=== PATIENT | female | born 1960 | race Caucasian/White ===

== ENCOUNTER → 2020-08-20 11:07 | Outpatient (CLI) | payer OTHER, SELFPAY ==
--- NOTE | ~2020-08-20 | US_ITS ---
EXAMINATION: US transvaginal DATE: 08/20/2020 11:37 INDICATION: Pelvic pain Comparison: No prior studies for comparison. TECHNIQUE: Multiple transabdominal sonographic images of the pelvis performed. FINDINGS: The uterus measures 6.5 x 3.9 x 4.2 cm. The endometrial complex measures 3 mm. The right ovary measures 1.7 x 1.9 x 1.2 cm and the left ovary measures 2 x 2 x 2 cm. There are small uterine fibroids, largest measuring 2.1 cm. There are nabothian cysts. There are small follicles in each ovary. Normal doppler signal in both ovaries. There is no free fluid in the pelvis. There are no abnormal masses seen on either side. IMPRESSION: 1. Uterine fibroids, largest measuring 2.1 cm. Reviewed, dictated and finalized at location B.
== END ==
PROVIDERS: Visit Provider Nurse Practitioner
DX: R10.2 Pelvic and perineal pain (principal); N94.11 Superficial (introital) dyspareunia; D25.9 Leiomyoma of uterus, unspecified
CPT/HCPCS: 76830

== ENCOUNTER → 2020-10-13 13:13 | Outpatient (CLI) | payer OTHER, SELFPAY ==
--- NOTE | ~2020-10-13 | MM_ITS ---
EXAMINATION: MM screening rico BI w michelle HISTORY: Screening mammogram TECHNIQUE: Craniocaudal and mediolateral oblique 3-D tomosynthesis images were obtained and synthetic 2-D images were generated. CAD analysis was submitted and interpreted. COMPARISON: 03/28/2018, 02/16/2017, 04/30/2015 bilateral digital screening mammogram examinations BREAST PARENCHYMAL COMPOSITION: The breasts are heterogeneously dense, which may obscure small masses . FINDINGS: Stable fibroglandular asymmetry. Multiple bilateral benign calcifications are again noted. There is no evidence of suspicious mass, calcification, or architectural distortion to suggest malign momo in either breast. There has been no suspicious interval change. IMPRESSION: 1. No mammographic evidence of malignancy. 2. Recommend routine screening mammography in one year. BI-RADS Category 2: Benign finding(s). Reviewed, dictated and finalized at location A.
--- NOTE | ~2020-10-13 | DEXA_ITS ---
Bone Density Report Name: Rima Carter Age: 60 Sex: Female Ethnicity: White Date of : 1960 Indication: postmenopausal; screening for osteoporosis; Referring Provider: MYESHA, ZAK Study: Bone densitometry was performed. Exam Date: October 13, 2020 Accession number: [id number] Bone Density: Region BMD T-score Z-score Classification AP Spine (L1-L4) 1.157 1.0 2.3 Normal Femoral Neck (Left) 0.793 -0.5 0.7 Normal Total Hip (Left) 1.028 0.7 1.6 Normal Femoral Neck (Right) 0.799 -0.4 0.8 Normal Total Hip (Right) 0.977 0.3 1.1 Normal Total Hip Mean 1.003 0.5 1.4 Normal World Health Organization criteria for BMD impression classify patients as: Normal (T-score at or above -1.0), Osteopenia (T-score between -1.0 and -2.5), or Osteoporosis (T-score at or below -2.5). 10-year Fracture Risk: FRAX not reported because: All T-scores for Spine Total, Hip Total, Femoral Neck at or above -1.0 Previous Exams: Region Exam Age BMD T-score BMD Change BMD Change Date g/cm2 vs Baseline vs Previous AP Spine(L1-L4) 10/13/2020 60 1.157 1.0 -0.078* -0.078* 01/23/2014 53 1.235 1.7 Total Hip(Left) 10/13/2020 60 1.028 0.7 -0.079* -0.079* 01/23/2014 53 1.107 1.3 Total Hip(Right) 10/13/2020 60 0.977 0.3 -0.101* -0.101* 01/23/2014 53 1.078 1.1 *Denotes significance at 95% confidence level, LSC for AP Spine = 0.022 g/cm2, LSC for Total Hip = 0.027 g/cm2 Clinical Information Provided by Patient: Patient maximum height was 65 Menopause Age: 52 No regular weight bearing exercise Does not regularly consume dairy products Drinks caffeinated beverages Onset of menses at age 17 Number of children 0 Impression: The patient has normal bone mass. The BMD for the AP Spine(L1-L4) decreased, changing by -0.078 since the last DXA exam. The BMD for the Total Hip(Left) decreased, changing by -0.079 since the last DXA exam. The BMD for the Total Hip(Right) decreased, changing by -0.101 since the last DXA exam. Discussion: BONE DENSITY IS ABOVE THE MINIMUM DESIRABLE LEVEL AT ALL SKELETAL SITES TESTED. This patient?s bone mineral density is above the minimum desirable level (T-score -1.0 or better) at all sites measured. The patient should follow a healthful lifestyle (good nutrition with adequate calcium and vitamin D, and appropriate weight-bearing exercise). Follow-Up: Consider repeating
== END ==
PROVIDERS: PCP Family Medicine; Visit Provider Nurse Practitioner
DX: Z12.31 Encounter for screening mammogram for malignant neoplasm of breast (principal); Z78.0 Asymptomatic menopausal state
CPT/HCPCS: 77063; 77067; 77080

== ENCOUNTER → 2021-10-17 13:36 | Outpatient (CLI) | payer OTHER, SELFPAY ==
--- NOTE | ~2021-10-17 | MM_ITS ---
EXAMINATION: MM screening rico BI w michelle HISTORY: Screening TECHNIQUE: Craniocaudal and mediolateral oblique 3-D tomosynthesis images were obtained and synthetic 2-D images were generated. CAD analysis was submitted and interpreted. COMPARISON: Comparison to multiple prior studies sequentially, with oldest reviewed study dated 06/2013. BREAST PARENCHYMAL COMPOSITION: The breasts are extremely dense, which lowers the sensitivity of mamm ography FINDINGS: There is no evidence of suspicious mass, calcification, or architectural distortion to sugg est malignancy in either breast. There has been no suspicious interval change. IMPRESSION: 1. No mammographic evidence of malignancy. 2. Recommend routine screening mammography in one year. BI-RADS Category 1: Negative Reviewed, dictated and finalized at location A.
== END ==
PROVIDERS: PCP Family Medicine; Visit Provider Nurse Practitioner
DX: Z12.31 Encounter for screening mammogram for malignant neoplasm of breast (principal)
CPT/HCPCS: 77063; 77067

== ENCOUNTER 2022-12-28 13:23 | Outpatient (CLI) | payer SELFPAY ==
--- NOTE | ~2022-12-28 | MM_ITS ---
EXAMINATION: MM screening rico BI w michelle HISTORY: Screening mammogram TECHNIQUE: Craniocaudal and mediolateral oblique 3-D tomosynthesis images were obtained and synthetic 2-D images were generated. CAD analysis was submitted and interpreted. COMPARISON: 10/17/2021, 10/13/2020, 03/28/2018 bilateral screening mammogram examinations BREAST PARENCHYMAL COMPOSITION: The breasts are heterogeneously dense, which may obscure small masses . FINDINGS: Stable fibroglandular asymmetry. Bilateral benign calcifications are again noted. There is no evidence of suspicious mass, calcification, or architectural distortion to suggest malignancy in e ither breast. There has been no suspicious interval change. IMPRESSION: 1. No mammographic evidence of malignancy. 2. Recommend routine screening mammography in one year. BI-RADS Category 2: Benign finding(s). Reviewed, dictated and finalized at location A.
== END 2022-12-28 13:24 ==
PROVIDERS: PCP Nurse Practitioner; Visit Provider Nurse Practitioner
DX: Z12.31 Encounter for screening mammogram for malignant neoplasm of breast (principal)
CPT/HCPCS: 77063; 77067

== ENCOUNTER 2024-01-07 12:39 | Outpatient (CLI) | payer OTHER, SELFPAY ==
--- NOTE | ~2024-01-07 | MM_ITS ---
EXAMINATION: MM screening rico BI w michelle HISTORY: Screening mammogram TECHNIQUE: Craniocaudal and mediolateral oblique 3-D tomosynthesis images were obtained and synthetic 2-D images were generated. CAD analysis was submitted and interpreted. COMPARISON: 12/28/2022, 10/17/2021, 10/13/2020 BREAST PARENCHYMAL COMPOSITION:Dense: The breasts are heterogeneously dense, which may obscure small masses. FINDINGS: No suspicious mass, calcification, or architectural distortion are identified in either pacheco ast to suggest malignancy. There has been no suspicious interval change. IMPRESSION: No mammographic evidence of malignancy. Recommend routine screening mammography in one year. BI-RADS Category 1: Negative Reviewed, dictated and finalized at location .
== END 2024-01-07 12:40 | disposition home or self-care (01) ==
PROVIDERS: PCP Nurse Practitioner; Visit Provider Nurse Practitioner
DX: Z12.31 Encounter for screening mammogram for malignant neoplasm of breast (principal)
CPT/HCPCS: 77063; 77067

== ENCOUNTER 2024-08-17 22:39 | Emergency (ER) | payer BC, SELFPAY ==
--- NOTE | ~2024-08-17 | CT_ITS ---
Non-contrast Head CT History: Head injury Technique: Axial non-contrast imaging of the brain was performed. Dose reduction technique was used on this scan by utilizing automated exposure control and iterative reconstruction technique. The dose -length product (DLP) was 681.00 mGy-cm. Findings: There is no evidence of intracranial hemorrhage, mass lesion, or acute infarct. Brain par enchyma appears normal. The ventricles and subarachnoid spaces are normal in size. The calvarium ap pears normal. The visualized paranasal sinuses and mastoid air cells are clear. Impression: No significant abnormality seen. Reviewed, dictated and finalized at location . Impression: No significant abnormality seen.
[2024-08-17 22:41] VITALS: BP 155/80; PULSE 72; RESP 15; TEMP 36.7; O2SAT 97
--- OUTSIDE RECORDS SUMMARY | 2024-08-17 22:42 | XMS_ITS | Clinical Summary ---
Author Organization [facility] Address [address] [place] [address] Care Team Providers Care Foam Caster Name Role Phone Sudhakar Doyle DO Primary Care Provider + Allergies Active Allergy Reactions Criticality Noted Date Comments Nickel Itching,Rash Medium 11/18/2018 Penicillins Rash Medium 02/08/2018 Medications aspirin-calcium carbonate 81 mg-300 mg calcium(777 mg) tablet Take 81 mg by mouth Active diphenhydramine HCl (BENADRYL ALLERGY ORAL) Take by mouth Active turmeric root extract 500 mg capsule Take by mouth Active levocetirizine (XYZAL) 5 mg tablet Take 1 tablet (5 mg total) by mouth daily 30 tablet 6 01/31/20 24 025 Active atenoloL (TENORMIN) 50 mg tablet TAKE 1 TABLET BY MOUTH TWICE DAILY 200 tablet 1 02/25/20 24 Active pravastatin (PRAVACHOL) 40 mg tablet Take 1 tablet (40 mg total) by mouth daily 30 tablet 6 07/05/19 25 026 Active triamterene-hydroC HLOROthiazide 37.5-25 mg per tablet/capsule Take 1 tablet/caps ule by mouth daily 30 tablet/caps ule 6 07/05/19 25 026 Active fluticasone propionate (FLONASE) 50 mcg/actuation nasal spray SHAKE LIQUID AND USE 2 SPRAYS IN EACH NOSTRIL DAILY 48 g 1 07/17/19 25 Active meloxicam (MOBIC) 15 mg tabletIndications: Primary osteoarthritis of left knee TAKE 1 TABLET(15 MG) BY MOUTH DAILY 30 tablet 1 08/06/19 25 Active meloxicam (MOBIC) 15 mg tabletIndications: Primary osteoarthritis of left knee TAKE 1 TABLET(15 MG) BY MOUTH DAILY 30 tablet 1 06/02/19 25 025 Discontinued Active Problems Problem Noted Date Diagnosed Date Nasal obstruction 07/07/2022 Assessment & Plan (08/15/2022 10:42 AM CDT): The symptoms have improved considerably. She does feel like she is still a mouth breather. She is not sure if that is the way she is all the time. Generally things are much more clear. I recommended continuing with her steroid nasal spray and antihistamines. We talked about doing some further workup including allergy testing and doing a CT scan. At this point we decided to take wait and see approach. She will call if she to pursue any of this. Assessment & Plan (07/07/2022 6:36 PM CDT): She does have a nasal polyp on the right side. Otherwise I do not see a lot of findings of obstruction on endoscopy. I am recommending eventual CT scan to further evaluate. I am going to treat her with a steroid pack and Ceftin for 2 weeks. I would like to have her follow up in about 6 weeks. Polyp of nasal cavity 07/07/2022 Assessment & Plan (08/15/2022 10:42 AM CDT): Endoscopically there was no further evidence of polyps on either side of the nose. I recommended no further intervention although we did talk about doing a CT scan to see if there is anything further that can be addressed. Overall we decided to treat conservatively. I am going to see her as needed. Assessment & Plan (07/07/2022 6:37 PM CDT): I discussed this with her. It is likely that this is an inflammatory polyp on the right side. I am treating with medication but I do recommended a follow-up in about 6 weeks[address] recommend a [address] scan of her sinuses at that time. She understands. I told her that she does need to stop using Afrin nasal spray completely. Could consider allergy testing also. IFG (impaired fasting glucose) 04/05/2020 Cervical radiculopathy 03/05/2020 Primary osteoarthritis of left knee 03/07/2018 Acute bilateral low back pain with left-sided sc iatica 01/18/2018 Allergic rhinitis 03/23/2017 HTN, goal below 140/90 03/23/2017 Hyperlipidemia 03/23/2017 Obesity (BMI 30-39.9) 03/23/2017 Resolved Problems Problem Noted Date Diagnosed Date Resolved Date Chronic pain of left knee 07/11/2022 Overview (07/11/2022): acute on chronic,unstable,fall 3 months ago;worsening formerly followed by Ortho Encounters Date Type Department Care Team Description 07/04/2024 3:00 PM CDT Office Visit [facility] Primary Care [address] [place] [phone] Sudhakar Doyle DO Annual physical exam (Primary Dx); HTN, goal below 140/90; Mixed hyperlipidemia; IFG (impaired fasting glucose); Class 1 obesity without serious comorbidity with body mass index (BMI) of 30.0 to 30.9 in adult, unspecified obesity type from Last 3 Months Immunizations Immunization Administration Dates Next Due Influenza, Quadrivalent, Spl it, Preservative Free, Intradermal 12/31/2017,02/11/2016 Influenza, Quadrivalent, Spl it, Preservative Free, Intramuscular 01/30/2020,02/17/2019 Influenza, Trivalent, Preser vative Free, Intramuscular 01/04/2024 Influenza, Unspecified 02/21/2023,2021,01/21/2021,12/23 Tdap 04/05/2020 Surgical History Surgery Date Site/Laterality Comments FOOT SURGERY Bilateral MOLE REMOVAL 05/31/2022 Right right ear Medical History Medical History Date Comments Esophageal perforation Allergic rhinitis Osteoarthritis Hyperlipidemia Hypertension Dizziness Tinnitus Headache Sinusitis Nasal polyps Family History Medical History Relation Name Comments Cancer Father Angel Becka Hearing loss Father Angel Becka Parkinsonism Father Angel Becka Arthritis Maternal Grandmother Moon June Cancer Mother Rianna Muñiz Hypertension Mother Rianna Muñiz Stroke Sister Relation Name Status Comments Father Angel Muñiz (Age 81) Maternal Grandmother Moon June Mother Rianna Muñiz (Age 78) Sister Social History Tobacco Use Types Packs/Day Years Used Date Smoking Tobacco: Never Smokeless Tobacco: Never Tobacco Cessation:Counseling Given: Not Answered Alcohol Use Standard Drinks/Week Comments Yes 0 (1 standard drink = 0.6 oz pur e alcohol) AUDIT-C Answer Date Recorded Frequency of Alcohol Consumption Monthly or less 08/08/2018 Average Number of Drinks Not on file 019 Frequency of Binge Drinking Not on file 07/22 PHQ-2 Answer Date Recorded PHQ-2 Total Score (If total score is 3 or more points, staff should administer the PHQ-9) 0 07/04/2024 Comments No Sex and Gender Information Value Date Recorded Sex Assigned at Not on file Legal Sex Female 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 HAIR Gender Identity Female 11/15/2018 4:40 PM CDT Sexual Orientation Straight 04/07/2021 9: 34 AM MANAGER HAIR Obstetrics History Last Filed Vital Signs Vital Sign Reading Time Taken Comments Blood Pressure 124/72 07/04/2024 2:50 PM CDT Pulse 75 07/04/2024 2:50 PM CDT Temperature 36.3 C (97.4 F) 07/04/2024 2:50 PM CDT Respiratory Rate 16 07/04/2024 2:50 PM CDT Oxygen Saturation 98% 07/04/2024 2:50 PM CDT Inhaled Oxygen Concentration - - Weight 89.8 kg (198 lb) 07/04/2024 2:50 PM CDT Height 165.1 cm (5' 5 ) 07/04/2024 2:50 PM CDT Body Mass Index 32.95 07/04/2024 2:50 PM CDT Plan of Treatment Health Maintenance Due Date Last Done Comments Cervical Cancer Screening 1960 Hepatitis B Screening 1980 Zoster Vaccine (1 of 2) 2012 Breast Cancer Screening-Mammogram 10/17/2022 10/17/2021 Depression Screening 07/04/2025 07/04/2024, 01/04/2024, 07/03/2023, Additional history exists Regular Well Visit/Exam 18-64 07/04/2025 07/04/2024, 07/03/2023, 06/13/2022, Additional history exists Colon Cancer Screening-Colonoscopy 05/07/2027 05/07/2017 DTaP/Tdap/Td Vaccine (2 - Td or Tdap) 04/05/2030 04/05/2020 Hepatitis C Screening Completed 10/04/2020 Influenza Vaccine Completed 01/04/2024, , 02/21/2022, Additional history exists Pneumococcal vaccine <65 Aged Out No longer eligible based on patient's age to complete this topic Procedures Procedure Name Priority Date/Time Associated Diagnosis Comments POCT HEMOGLOBIN A1C Routine 07/04/2024 3:10 PM CDT IFG (impaired fasting glucose) SCREENING MAMMOGRAM BILATERAL W TIEN Schedule Routine, Read Routine (OP Routine) 10/17/2021 HEPATITIS C ANTIBODY Routine 10/04/2020 2:54 PM CDT Need for hepatitis C screening test from Last 3 Months or Most Recently Relevant to Health Maintenance Results * POCT hemoglobin A1c (07/04/2024 3:10 PM CDT) Hemoglobin A1C, POC 5.7 4.0 - 5.6 % Blood 07/04/2024 3:10 PM CDT Sudhakar Doyle DO POINT OF CARE TEST ORDER CANDIDO Final Result * Screening Mammogram Bilateral W Tien (10/17/2021) Anatomical Region Laterality Modality Breast Bilateral Mammography Historical Provider MD CHAHAL MAMMO PROCEDURES Nivia l Result * Hepatitis C antibody (10/04/2020 2:54 PM CDT) Hep C Ab Nonreactive Nonreactive AYAZ SANCHEZ Comment: Interpretive Data Nonreactive: Antibodies to HCV not detected. Does NOT exclude the possibility of recent exposure to HCV. Equivocal: Equivocal for HCV antibodies. Supplemental molecular testing will be automatically performed to determine infection status in accordance with current CDC screening recommendations. Reactive: Positive for HCV antibodies. This may represent current or past HCV infection. Supplemental molecular testing will be automatically performed to determine current infection status in accordance with current CDC screening recommendations. Interpretive data was last revised on 2019. Blood specimen (specimen) 10/04/2020 2:54 PM CDT 10/04/2020 7:16 PM CDT Sudhakar Doyle DO LAB MICROBIOLOGY - GENER AL ORDERABLES Final Result Performing Organization Address City/State/[facility] Co de Phone Number AYAZ MH [phone] [facility] Department [place] [address] from Last 3 Months or Most Recently Relevant to Health Maintenance Insurance [facility] AETNA [facility] CHOICE PRF PPO [place] Care Teams Foam Caster Relationship Specialty Start Date End Date Sudhakar Doyle DO [address] [address] PCP - General Family Medicine 07/19/18
--- OUTSIDE RECORDS SUMMARY | 2024-08-17 22:42 | XMS_ITS | Clinical Summary ---
Author Organization [facility] Address [address] [place] [address] Care Team Providers Care Business Proposal Rep Name Role Phone Unavailable Primary Care Provider Unavailabl e Source Comments [facility],non-owned Affiliates and Associated Physician Practices is amultiple site organization consisting of ambulatory clinics and hospital sitesin [place], [place], [place] and [place]. This disclosure is being madepursuant to the Care Everywhere program and may not contain all information available regarding this patient. Last updated 18.[facility] Allergies Active Allergy Reactions Criticality Noted Date Comments Penicillins Rash Medium 02/08/2018 Medications * Be aware that medications may not be up to date on this document. Alwaysverify current medications with the patient. pravastatin (PRAVACHOL) 40 MG tablet Take 40 mg by mouth at bedtime Active atenolol (TENORMIN) 50 MG tablet Take 50 mg by mouth once daily Active TELMISARTAN-HCT Z PO Active Fish Oil-Cholecalcif haleigh (FISH OIL + D3 PO) Active aspirin (ASPIRIN) 81 MG tablet Take 81 mg by mouth once daily Active predniSONE (DELTASONE) 10 MG tabletIndicatio ns:Poison lorna 40mg PO for 5 days, 20mg PO for 5 days and 10mg PO for 5 days then stop for rash 35 tablet 02/08/2018 Active Immunizations Immunization Administration Dates Next Due FLU VACCINE QUAD IIV4 PF ID 02/11/2016 INFLUENZA VACCINE, QUADR. (F LUZONE; FLULAVAL; FLUARIX; AFLURIA QUADRIVALENT; 6MO+), 0.5 ML (IIV4) 02/17/2019 Social History Tobacco Use Types Packs/Day Years Used Date Smoking Tobacco: Never Smokeless Tobacco: Never Comments No Sex and Gender Information Value Date Recorded Sex Assigned at Not on file Legal Sex Female 12:31 PM CDT Gender Identity Not on file Sexual Orientation Not on file Last Filed Vital Signs Vital Sign Reading Time Taken Comments Blood Pressure 114/76 02/08/2018 12:00 PM CDT Pulse 84 02/08/2018 12:00 PM CDT Temperature 37 C (98.6 F) 02/08/2018 12:00 PM CDT Respiratory Rate 17 02/08/2018 12:00 PM CDT Oxygen Saturation 99% 02/08/2018 12:00 PM CDT Inhaled Oxygen Concentration - - Weight 83.9 kg (185 lb) 02/08/2018 12:00 PM CDT Height 165.1 cm (5' 5 ) 02/08/2018 12:00 PM CDT Body Mass Index 30.79 02/08/2018 12:00 PM CDT Plan of Treatment Health Maintenance Due Date Last Done Comments COLOGUARD (AGES 45-75) - COL ON CA SCREENING 1960 COLON MONITORING 1962 COLONOSCOPY - COLON CA SCREENING 1962 CT COLONOGRAPHY - COLON CA SCREENING 1960 Colorectal Cancer Screening 1960 FIT - COLON CA SCREENING 1962 FLEX SIG - COLON CA SCREENING 1960 MAMMOGRAM 1962 HIV SCREENING 1977 HEPATITIS C SCREENING 04/22/1980 DTAP/TDAP/TD VACCINES (1 - Tdap) 1981 PNEUMOCOCCAL VACCINE 50+ (1 of 1 - PCV) 2012 ZOSTER VACCINE (1 of 2) 2012 COVID-19 VACCINE ( - 2023-2 5 season) 2023 DEPRESSION SCREENING 04/23/2024 INFLUENZA VACCINE (Season Ended) 2024 02/17/2019, 02/11/2016 Respiratory Syncytial Virus (RSV) Vaccine Pt: or over 60 yrs (1 - 1-dose 75+ series) 2037 HEPATITIS B VACCINE Aged Out No longe r eligible based on patient's age to complete this topic HIB VACCINE Aged Out No longer eligi ble based on patient's age to complete this topic HPV VACCINE Aged Out No longer eligi ble based on patient's age to complete this topic MENINGOCOCCAL (Group B) VACCINE SHARED DECISION-MAKING Aged Out No longer eligible based on patient's age to complete this topic MENINGOCOCCAL GROUPS A/C/Y/W VACCINE Aged Out No longer eligible b ased on patient's age to complete this topic Insurance [facility]
--- OUTSIDE RECORDS SUMMARY | 2024-08-17 22:42 | XMS_ITS | Referral Summary ---
Author Organization [facility] Address [facility] [facility] [address] [place] [address] Care Team Providers Care Vehicle Technician Name Role Phone Sudhakar Doyle DO Primary Care Provider + Encounters Date Type Department Care Team Description 07/04/2024 3:00 PM CDT Office Visit [facility] Primary Care [address] [place] [address] Sudhakar Doyle DO Annual physical exam (Primary Dx); HTN, goal below 140/90; Mixed hyperlipidemia; IFG (impaired fasting glucose); Class 1 obesity without serious comorbidity with body mass index (BMI) of 30.0 to 30.9 in adult, unspecified obesity type from Last 3 Months Allergies Active Allergy Reactions Criticality Noted Date [...] total) by mouth daily 30 tablet 6 03/14/ 026 Active triamterene-hydroC HLOROthiazide 37.5-25 mg per [...] 3 months ago;worsening formerly followed by Ortho Immunizations Immunization Administration Dates Next Due Influenza, Quadrivalent, Spl it, Preservative Free, Intradermal 12/31/2017,02/11/2016 Influenza, Quadrivalent, Spl it, Preservative Free, Intramuscular 01/30/2020,02/17/2019 Influenza, Trivalent, Preser vative Free, Intramuscular 01/04/2024 Influenza, Unspecified 02/21/2023,2021,01/21/2021,12/23 Tdap 04/05/2020 Social History Tobacco Use Types Packs/Day Years [...] on file 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 Gender Identity Female 11/15/2018 4:40 PM CDT Sexual Orientation Straight 04/07/2021 9: 34 AM ADULT BASIC EDUCATION TEACHER Last Filed Vital Signs Vital Sign Reading [...] 07/04/2024 2:50 PM CDT Plan of Treatment Not on file Procedures Procedure Name Priority Date/Time Associated Diagnosis [...] Modality Breast Bilateral Mammography Historical Provider MD IMG MAMMO PROCEDURES Nivia l Result * Hepatitis [...] CDT Sudhakar Doyle DO LAB MICROBIOLOGY - [facility] AL ORDERABLES Final Result Performing Organization Address City/State/[facility] Co de Phone Number JORDONOLIVIER [address] [facility] Department of Laboratories [place], [place] [phone] from Last 3 Months or Most Recently Relevant to Health Maintenance Insurance [facility] AETNA SIGNATURE [place] CHOICE PRF [place] [facility] AETNA SIGNATURE Care Teams Vehicle Technician Relationship Specialty Start Date End Date Sudhakar Doyle DO [address] [place] [id number] PCP - General Family Medicine 07/19/18
--- OUTSIDE RECORDS SUMMARY | 2024-08-17 22:42 | XMS_ITS | Encounter Summary ---
Author Organization [facility] Care Team Providers Care Physical Therapist Clinic Director Name Role Phone Sudhakar Doyle DO Primary Care Provider + Encounter Details Date Type Department Care Team (Latest Contact Info) Description 05/03/2017 Orders Only [facility] CLINCONV ProviderAftab MD [facility] [place] [address] Social History Tobacco Use Types Packs/Day Years Used Date Smoking Tobacco: Never Assessed Comments Unknown Sex and Gender Information Value Date Recorded Sex Assigned at Not on file Legal Sex Female 12:17 PM PROPERTY MANAGER Gender Identity Female 11/15/2018 4:40 PM CDT Sexual Orientation Straight 04/07/2021 9: 34 AM PROPERTY MANAGER documented as of this encounter Plan of Treatment Not on file documented as of this encounter Procedures Procedure Name Priority Date/Time Associated Diagnosis Comments COLONOSCOPY - SCAN 05/03/2017 12 :00 AM PROPERTY MANAGER documented in this encounter Results * COLONOSCOPY - SCAN (05/03/2017 12:00 AM PROPERTY MANAGER) Narrative 05/03/2017 12:00 AM PROPERTY MANAGER Ordered by an unspecified provider. Historical Provider Final Res ult documented in this encounter Visit Diagnoses Not on filedocumented in this encounter Care Teams Physical Therapist Clinic Director Relationship Specialty Start Date End Date Sudhakar Doyle DO [address] [address] PCP - General Family Medicine 07/19/18 documented as of this encounter
--- OUTSIDE RECORDS SUMMARY | 2024-08-17 22:42 | XMS_ITS | Clinical Summary ---
Author Organization [facility] Address [facility] [place] [address] Care Team Providers Care Extension Clerk Name Role Phone Sudhakar Doyle DO Primary Care Provider [phone] Allergies Active Allergy Reactions Criticality Noted Date Comments Nickel Itching,Rash Medium 11/18/2018 Penicillins Unknown 03/05/2020 Medications pravastatin 40 MG tablet Take 40 mg by mouth nightly at bedtime. Active atenolol 50 MG tablet Take 50 mg by mouth daily. Active triamterene-hyd roCHLOROthiazid e 37.5-25 MG tablet Take 1 tablet by mouth daily. Active aspirin EC 81 MG tablet Take 81 mg by mouth daily. Active NON FORMULARYIndica tions:occuvite Take 1 tablet by mouth daily. Indications: occuvite Active NON FORMULARYIndica tions:mima red omega 3 krill oil Take 1 tablet by mouth daily. Indications: mima red omega 3 krill oil Active NON FORMULARYIndica tions:move free joint health Take 1 tablet by mouth daily. Indications: move free joint health Active NON FORMULARYIndica tions:zyrtec otc Take 1 tablet by mouth daily. Indications: zyrtec otc Active Active Problems Problem Noted Date Diagnosed Date Cervical radiculopathy 03/05/2020 Family History Medical History Relation Comments parkinsons Father Cancer Mother stroke Sister Relation Status Comments Father Mother Sister Alive Social History Tobacco Use Types Packs/Day Years Used Date Smoking Tobacco: Never Smokeless Tobacco: Never Alcohol Use Standard Drinks/Week Comments Not Currently 0 (1 standard drink = 0.6 oz pur e alcohol) Exercise Vital Sign Answer Date Recorde d On average, how many days pe r week do you engage in moderate to strenuous exercise (like a brisk walk)? 7 days 03/05/2020 On average, how many minutes do you engage in exercise at this level? 30 min 03/05/2020 Education Answer Date Recorded What is the highest level of school you have completed or the highest degree you have received? Bachelor's degree (e.g., BA, AB, BS) 03/05/2020 Comments No Sex and Gender Information Value Date Recorded Sex Assigned at Not on file Legal Sex Female 4:47 PM CDT Gender Identity Not on file Sexual Orientation Not on file Occupation Industry Job Start Date Job End Date Not on file Not on file Not on file Not on file Last Filed Vital Signs Vital Sign Reading Time Taken Comments Blood Pressure 105/71 2020 1:54 PM JOB COST ESTIMATOR Pulse 67 2020 1:54 PM JOB COST ESTIMATOR Temperature 36.6 C (97.8 F) 2020 1:35 PM JOB COST ESTIMATOR Respiratory Rate 18 2020 1:54 PM JOB COST ESTIMATOR Oxygen Saturation 98% 2020 1:54 PM JOB COST ESTIMATOR Inhaled Oxygen Concentration - - Weight 85.7 kg (189 lb) 2020 1:35 PM JOB COST ESTIMATOR Height 165.1 cm (5' 5 ) 2020 1:35 PM JOB COST ESTIMATOR Body Mass Index 31.45 2020 1:35 PM JOB COST ESTIMATOR Plan of Treatment Health Maintenance Due Date Last Done Comments Cervical Cancer Screening Pa p Smear (Age 30 to 64) Every 3 Years 1962 Colorectal Cancer Screening Colonoscopy (10 Years) 1962 Annual Physical 1965 Hepatitis C 1980 Cervical Cancer Screening Pa p with HPV Testing (Age 30 to 64) Every 5 Years 1992 Cervical Cancer Screening with HPV 1992 Mammogram Screening 2002 Pneumococcal Vaccine: 50+ Ye ars (1 of 1 - PCV) 2012 Zoster Vaccines (1 of 2) 2012 COVID-19 Vaccine ( - 2023-2 5 season) 2023 DTaP, Tdap and Td Vaccines ( 2 - Td or Tdap) 04/05/2030 04/05/2020 RSV Immunization or 60+ Years (1 - 1-dose 75+ series) 2037 Meningococcal B Vaccine Aged Out No l onger eligible based on patient's age to complete this topic Meningococcal Vaccine Aged Out No david dayami eligible based on patient's age to complete this topic RSV Immunizations Under 20 Months Aged Out No longer eligible based on patient's age to complete this topic Insurance Care Teams Extension Clerk Relationship Specialty Start Date End Date Sudhakar Doyle DO [address] [place] [phone] PCP - General FAMILY PRACTICE 03/03/20
--- OUTSIDE RECORDS SUMMARY | 2024-08-17 22:42 | XMS_ITS | Encounter Summary ---
Author Organization [facility] Address [address] [place] [address] Care Team Providers Care Prepress Technician Name Role Phone Vivek Sudhakar Rachel ARTIS Primary Care Provider [phone] Reason for Referral * Surgical (Routine) - Closed Specialty Diagnoses / Procedures Referred By Kennedy light Referred To Contact Procedures Case request operating room: INJECTION EPIDURAL STEROID CERVICAL C5-6 Sosa Mejias APNP Phone: tel: fax: Referral ID Status Reason Start Date Expiration Date Visits Re quested Visits Authorized [id number] Closed 03/05/2020 04/04/2021 1 1 STRIAL MAINTENANCE ELECTRICIAN Encounter Details Date Type Department Care Team (Late st Contact Info) Description 03/05/2020 Prep for Procedure [facility] [place] [address] [phone] Sosa Mejias APNP [address] [place] [phone] Social History Tobacco Use Types Packs/Day Years [...] file Not on file Not on file COVID-19 Exposure Response Date Recorded In the last month, have you been in contact with someone who was confirmed or suspected to have Coronavirus / COVID-19? No / Unsure 03/05/2020 11:32 AM INDUSTRIAL MAINTENANCE ELECTRICIAN documented as of this encounter Plan of Treatment Scheduled Orders Name Type Priority Associated Diagnoses Orde r Schedule Case request operating room: INJECTION EPIDURAL STEROID CERVICAL C5-6 Case Request Routine Once for 1 Occur rences starting 03/05/2020 until 03/05/2020 documented as of this encounter Visit Diagnoses Not on filedocumented in this encounter Care Teams Prepress Technician Relationship Specialty Start Date End Date Sudhakar Doyle DO [address] [place], [place] [address] PCP - General FAMILY PRACTICE 03/03/20 documented as of this encounter
--- OUTSIDE RECORDS SUMMARY | 2024-08-17 22:42 | XMS_ITS | Encounter Summary ---
Author Organization [facility] Care Team Providers Care National Basketball [employer] Scout Name Role Phone Sudhakar Doyle DO Primary Care Provider + Encounter Details Date Type Department Care Team (Latest Contact Info) Description 03/23/2017 Orders Only [facility] CLINCONV ProviderAftab MD [facility] [place] [address] Social History Tobacco Use Types Packs/Day Years Used Date Smoking Tobacco: Never Assessed Comments Unknown Sex and Gender Information Value Date Recorded Sex Assigned at Not on file Legal Sex Female 12:17 PM PRECISION AGRICULTURE SPECIALIST Gender Identity Female 11/15/2018 4:40 PM CDT Sexual Orientation Straight 04/07/2021 9: 34 AM PRECISION AGRICULTURE SPECIALIST documented as of this encounter Plan of Treatment Not on file documented as of this encounter Procedures Procedure Name Priority Date/Time Associated Diagnosis Comments SCAN - LABS 03/23/2017 12:00 AM PRECISION AGRICULTURE SPECIALIST documented in this encounter Results * SCAN - LABS (03/23/2017 12:00 AM PRECISION AGRICULTURE SPECIALIST) Narrative 03/23/2017 12:00 AM PRECISION AGRICULTURE SPECIALIST Ordered by an unspecified provider. Historical Provider Final Res ult documented in this encounter Visit Diagnoses Not on filedocumented in this encounter Care Teams [employer] Scout Relationship Specialty Start Date End Date Sudhakar Doyle DO [address] [address] PCP - General Family Medicine 07/19/18 documented as of this encounter
--- OUTSIDE RECORDS SUMMARY | 2024-08-17 22:42 | XMS_ITS | Encounter Summary ---
Author Organization [facility] Facility Care Team Providers Care Carbon Setter Name Role Phone Sudhakar Doyle DO Primary Care Provider + Encounter Details Date Type Department Care Team (Latest Contact Info) Description 05/07/2017 Orders Only MMG CLINCONV ProviderAftab MD [facility] [place] [address] Social History Tobacco Use Types Packs/Day Years Used Date Smoking Tobacco: Never Assessed Comments Unknown Sex and Gender Information Value Date Recorded Sex Assigned at Not on file Legal Sex Female 12:17 PM SAT TUTOR Gender Identity Female 11/15/2018 4:40 PM CDT Sexual Orientation Straight 04/07/2021 9: 34 AM SAT TUTOR documented as of this encounter Plan of Treatment Not on file documented as of this encounter Procedures Procedure Name Priority Date/Time Associated Diagnosis Comments COLONOSCOPY - SCAN 05/07/2017 12 :00 AM SAT TUTOR documented in this encounter Results * COLONOSCOPY - SCAN (05/07/2017 12:00 AM SAT TUTOR) Narrative 05/07/2017 12:00 AM SAT TUTOR Ordered by an unspecified provider. Historical Provider Final Res ult documented in this encounter Visit Diagnoses Not on filedocumented in this encounter Care Teams Carbon Setter Relationship Specialty Start Date End Date Sudhakar Doyle DO [address] [address] PCP - General Family Medicine 07/19/18 documented as of this encounter
--- OUTSIDE RECORDS SUMMARY | 2024-08-18 02:01 | XMS_ITS | Clinical Summary ---
Author Organization [facility] Address [address] [place] [address] Care Team Providers Care Telephone Information Supervisor Name Role Phone Unavailable Primary Care Provider Unavailabl e Source Comments [facility],non-owned Affiliates and Associated Physician Practices is amultiple site organization consisting of ambulatory clinics and hospital sitesin [place], [place], [place] and [place]. This disclosure is being madepursuant to the Care Everywhere program and may not contain all information available regarding this patient. Last updated 18.[facility] Allergies Active Allergy Reactions Criticality Noted Date [...] patient's age to complete this topic Insurance [facility]
--- OUTSIDE RECORDS SUMMARY | 2024-08-18 02:01 | XMS_ITS | Clinical Summary ---
Author Organization [facility] Address [facility] [place] [address] Care Team Providers Care Patient Sitter Name Role Phone Sudhakar Doyle DO Primary Care Provider [phone] Allergies Active Allergy Reactions Criticality Noted Date [...] Comments Blood Pressure 105/71 2020 1:54 PM DIRECTOR BIOMEDICAL ENGINEERING Pulse 67 2020 1:54 PM DIRECTOR BIOMEDICAL ENGINEERING Temperature 36.6 C (97.8 F) 2020 1:35 PM DIRECTOR BIOMEDICAL ENGINEERING Respiratory Rate 18 2020 1:54 PM DIRECTOR BIOMEDICAL ENGINEERING Oxygen Saturation 98% 2020 1:54 PM DIRECTOR BIOMEDICAL ENGINEERING Inhaled Oxygen Concentration - - Weight 85.7 kg (189 lb) 2020 1:35 PM DIRECTOR BIOMEDICAL ENGINEERING Height 165.1 cm (5' 5 ) 2020 1:35 PM DIRECTOR BIOMEDICAL ENGINEERING Body Mass Index 31.45 2020 1:35 PM DIRECTOR BIOMEDICAL ENGINEERING Plan of Treatment Health Maintenance Due Date [...] to complete this topic Insurance Care Teams Patient Sitter Relationship Specialty Start Date End Date Sudhakar Doyle DO [address] [place] [address] [phone] PCP - General FAMILY PRACTICE 03/03/20
--- OUTSIDE RECORDS SUMMARY | 2024-08-18 02:01 | XMS_ITS | Encounter Summary ---
Author Organization [facility] Facility Care Team Providers Care Corner Former Name Role Phone Sudhakar Doyle DO Primary Care Provider + Encounter Details Date Type Department Care Team (Latest Contact Info) Description 05/03/2017 Orders Only MMG CLINCONV ProviderAftab MD [facility] [place] [address] Social History Tobacco Use Types Packs/Day Years Used Date Smoking Tobacco: Never Assessed Comments Unknown Sex and Gender Information Value Date Recorded Sex Assigned at Not on file Legal Sex Female 12:17 PM ASSISTANT PRINCIPAL Gender Identity Female 11/15/2018 4:40 PM CDT Sexual Orientation Straight 04/07/2021 9: 34 AM ASSISTANT PRINCIPAL documented as of this encounter Plan of Treatment Not on file documented as of this encounter Procedures Procedure Name Priority Date/Time Associated Diagnosis Comments COLONOSCOPY - SCAN 05/03/2017 12 :00 AM ASSISTANT PRINCIPAL documented in this encounter Results * COLONOSCOPY - SCAN (05/03/2017 12:00 AM ASSISTANT PRINCIPAL) Narrative 05/03/2017 12:00 AM ASSISTANT PRINCIPAL Ordered by an unspecified provider. Historical Provider Final Res ult documented in this encounter Visit Diagnoses Not on filedocumented in this encounter Care Teams Corner Former Relationship Specialty Start Date End Date Sudhakar Doyle DO [address] [address] PCP - General Family Medicine 07/19/18 documented as of this encounter
--- OUTSIDE RECORDS SUMMARY | 2024-08-18 02:01 | XMS_ITS | Encounter Summary ---
Author Organization [facility] Facility Care Team Providers Care Car Mover Name Role Phone Sudhakar Doyle DO Primary Care Provider + Encounter Details Date Type Department Care Team (Latest Contact Info) Description 05/07/2017 Orders Only MMG CLINCONV ProviderAftab MD [facility] [place] [address] Social History Tobacco Use Types Packs/Day Years Used Date Smoking Tobacco: Never Assessed Comments Unknown Sex and Gender Information Value Date Recorded Sex Assigned at Not on file Legal Sex Female 12:17 PM CUSTOMER SALES REPRESENTATIVE Gender Identity Female 11/15/2018 4:40 PM CDT Sexual Orientation Straight 04/07/2021 9: 34 AM CUSTOMER SALES REPRESENTATIVE documented as of this encounter Plan of Treatment Not on file documented as of this encounter Procedures Procedure Name Priority Date/Time Associated Diagnosis Comments COLONOSCOPY - SCAN 05/07/2017 12 :00 AM CUSTOMER SALES REPRESENTATIVE documented in this encounter Results * COLONOSCOPY - SCAN (05/07/2017 12:00 AM CUSTOMER SALES REPRESENTATIVE) Narrative 05/07/2017 12:00 AM CUSTOMER SALES REPRESENTATIVE Ordered by an unspecified provider. Historical Provider Final Res ult documented in this encounter Visit Diagnoses Not on filedocumented in this encounter Care Teams Car Mover Relationship Specialty Start Date End Date Sudhakar Doyle DO [address] [address] PCP - General Family Medicine 07/19/18 documented as of this encounter
--- OUTSIDE RECORDS SUMMARY | 2024-08-18 02:01 | XMS_ITS | Clinical Summary ---
Author [facility] Address [address] [place] [address] Care Team Providers Care Detective Youth Bureau Name Role Phone Sudhakar Doyle DO Primary [...] Description 07/04/2024 3:00 PM CDT Office Visit [facility] Primary Care [address] [place] [phone] Sudhakar Doyle DO Annual physical exam [...] on file Legal Sex Female 12:17 PM ELECTRICAL CAD DESIGNER Gender Identity Female 11/15/2018 4:40 PM CDT Sexual Orientation Straight 04/07/2021 9: 34 AM ELECTRICAL CAD DESIGNER Obstetrics History Last Filed Vital Signs Vital [...] AL ORDERABLES Final Result Performing Organization Address City/State/[facility] Co de Phone Number AYAZ MH [address] [facility] Department [place] [address] from Last 3 Months or Most Recently Relevant to Health Maintenance Insurance [facility] AETNA [facility] CHOICE PRF PPO [place] Care Teams Detective Youth Bureau Relationship Specialty Start Date End Date Sudhakar Doyle DO [address] [address] PCP - General Family Medicine 07/19/18
--- OUTSIDE RECORDS SUMMARY | 2024-08-18 02:01 | XMS_ITS | Encounter Summary ---
Author Organization [facility] Address [address] [place] [address] Care Team Providers Care Assistant Womens Volleyball Coach Name Role Phone Vivek Sudhakar Rachel ARTIS Primary Care Provider [phone] Reason for Referral * Surgical (Routine) - Closed Specialty Diagnoses / Procedures Referred By Kennedy light Referred To Contact Procedures Case request operating room: INJECTION EPIDURAL STEROID CERVICAL C5-6 Sosa Mejias APNP Phone: tel: fax: Referral ID Status Reason Start Date Expiration Date Visits Re quested Visits Authorized [id number] Closed 03/05/2020 04/04/2021 1 1 TENANCE MECHANIC ENGINE Encounter Details Date Type Department Care Team (Late st Contact Info) Description 03/05/[address] [facility] [place] [address] [phone] Sosa Mejias APNP [address] [place] [phone] Social History Tobacco Use Types Packs/Day Years [...] COVID-19? No / Unsure 03/05/2020 11:32 AM MAINTENANCE MECHANIC ENGINE documented as of this encounter Plan of Treatment Scheduled Orders Name Type Priority Associated Diagnoses Orde r Schedule Case request operating room: INJECTION EPIDURAL STEROID CERVICAL C5-6 Case Request Routine Once for 1 Occur rences starting 03/05/2020 until 03/05/2020 documented as of this encounter Visit Diagnoses Not on filedocumented in this encounter Care Teams Assistant Womens Volleyball Coach Relationship Specialty Start Date End Date Sudhakar Doyle DO [address] [place], [place] [address] PCP - General FAMILY PRACTICE 03/03/20 documented as of this encounter
--- OUTSIDE RECORDS SUMMARY | 2024-08-18 02:01 | XMS_ITS | Referral Summary ---
Author Organization [facility] Address [facility] [place] [address] Care Team Providers Care Glass Etcher Helper Name Role Phone Sudhakar Doyle DO Primary Care Provider + Encounters Date Type Department Care Team Description 07/04/2024 3:00 PM CDT Office Visit [facility] Primary Care [address] [facility] [address] [place] [address] Sudhakar Doyle DO Annual physical [...] on file Legal Sex Female 12:17 PM ELECTROPHONIC ENGINEER Gender Identity Female 11/15/2018 4:40 PM CDT Sexual Orientation Straight 04/07/2021 9: 34 AM ELECTROPHONIC ENGINEER Last Filed Vital Signs Vital Sign Reading [...] CDT Sudhakar Doyle DO LAB MICROBIOLOGY - [facility] AL ORDERABLES Final Result Performing Organization Address City/State/[facility] Co de Phone Number JORDONOLIVIER [address] [facility] Department of Laboratories [place], [place] [phone] from Last 3 Months or Most Recently Relevant to Health Maintenance Insurance [facility] AETNA SIGNATURE [place] [facility] AETNA SIGNATURE Care Teams Glass Etcher Helper Relationship Specialty Start Date End Date Sudhakar Doyle DO [address] [place] [id number] PCP - General Family Medicine 07/19/18
--- OUTSIDE RECORDS SUMMARY | 2024-08-18 02:01 | XMS_ITS | Encounter Summary ---
Author Organization [facility] Facility Care Team Providers Care Computer Networker Name Role Phone Sudhakar Doyle DO Primary Care Provider + Encounter Details Date Type Department Care Team (Latest Contact Info) Description 03/23/2017 Orders Only MMG CLINCONV ProviderAftab MD [facility] [place] [address] Social History Tobacco Use Types Packs/Day Years Used Date Smoking Tobacco: Never Assessed Comments Unknown Sex and Gender Information Value Date Recorded Sex Assigned at Not on file Legal Sex Female 12:17 PM POWER MANAGER Gender Identity Female 11/15/2018 4:40 PM CDT Sexual Orientation Straight 04/07/2021 9: 34 AM POWER MANAGER documented as of this encounter Plan of Treatment Not on file documented as of this encounter Procedures Procedure Name Priority Date/Time Associated Diagnosis Comments SCAN - LABS 03/23/2017 12:00 AM POWER MANAGER documented in this encounter Results * SCAN - LABS (03/23/2017 12:00 AM POWER MANAGER) Narrative 03/23/2017 12:00 AM POWER MANAGER Ordered by an unspecified provider. Historical Provider Final Res ult documented in this encounter Visit Diagnoses Not on filedocumented in this encounter Care Teams Computer Networker Relationship Specialty Start Date End Date Sudhakar Doyle DO [address] [address] PCP - General Family Medicine 07/19/18 documented as of this encounter
--- NOTE | 2024-08-18 02:16 | ED.WOUNDLAC ---
HPI - Wound/Laceration General Chief Complaint: Wound/Laceration Stated Complaint: head injury Time Seen by Provider: 08/18/24 01:31 Source: patient Mode of arrival: ambulatory Limitations: no limitations History of Present Illness HPI narrative: This is a 64-year-old female, with no significant past medical history, presents to the emergency department complaining of a laceration at the top of head after a fall. The patient states she was pushing a cart, when she struck an object, losing balance and falling forward. She struck the top of her head on a grill and fell to the floor. She denies loss of consciousness and complains of 6/10 dull pain at the top of the head. She has no other complaints at this time. Related Data Allergies Allergy/AdvReac Type Severity Reaction Status Date / Time NKDA, NKFA Allergy Mild Other Uncoded 08/17/24 22:40 Review of Systems Review of Systems: All systems reviewed & are unremarkable except as noted in HPI and below PMFSH Past Medical History Medical History No significant past medical history Surgical History Surgical History No significant past surgical history Social History Social History Smoking status: Never smoker Alcohol intake: current Drinks per week: 1 Substance use: never Exam Narrative: GENERAL: Well-developed, well-nourished, and in no acute distress. HEAD: Normocephalic, there is a 3 senna laceration noted over the top of the scalp. EYES: PERRLA and EOMI. ENT: Nares clear, no rhinorrhea or epistaxis. Mucous membranes moist. Oropharynx without tonsillar hypertrophy exudate or other lesions. Bilateral TMs pearly welsh nonbulging no hematotympanum. NECK: Supple. No midline spine tenderness to palpation, no step-off or crepitus CHEST: Clear to auscultation. No respiratory distress. No wheezes rales or rhonchi HEART: Regular rate and rhythm. No murmur heard. Normal peripheral pulses. EXTREMITIES: Normal range of motion. No edema. SKIN: Warm, dry, no rash. NEURO: Alert and oriented x3. No focal deficit. Moving all 4 limbs spontaneously PSYCH: Normal mood and affect. Course Course Emergency Course: 03:36 - STAT Rad interpretation of the patient's CT head demonstrated ?no evidence of acute intracranial abnormality. No ICH, mass effect or edema. No skull fracture.? The patient was given a tetanus vaccination. Her wound was cleaned and approximated with robert. Please see procedure note. Will discharge with recommendation for primary care follow-up and suture removal. I discussed the findings and recommendations with the patient. Discussed return and emergency precautions including signs/symptoms of no hemorrhage and stroke. The patient voiced understanding and agreement with the plan. All questions answered to her satisfaction. Vital Signs Vital signs: Vital Signs Temperature 98.1 F 08/17/24 22:41 Pulse Rate 72 08/17/24 22:41 Respiratory Rate 15 08/17/24 22:41 Blood Pressure 155/80 H 08/17/24 22:41 Pulse Oximetry 97 08/17/24 22:41 Oxygen Delivery Room Air 08/17/24 22:41 Temperature 98.1 F 08/17/24 22:41 Pulse Rate 72 08/17/24 22:41 Respiratory Rate 15 08/17/24 22:41 Blood Pressure 155/80 H 08/17/24 22:41 Pulse Oximetry 97 08/17/24 22:41 Oxygen Delivery Room Air 08/17/24 22:41 Procedures Laceration Laceration 1: Date: 08/18/24 Time: 03:44 Site: scalp Size (cm): 3 Description: linear and clean Depth: simple, single layer Local Anesthetic: none Pre-repair: wound explored and irrigated ====== Skin Level ====== Skin layer closed with: robert (3) ====== Subcutaneous Layer ====== ====== Muscle Layer ====== ====== Tendon Layer ====== MDM - Wound/Laceration MDM Narrative Medical decision making narrative: Plan: Pain control, laceration repair, imaging, reassess Differential Diagnosis Differential diagnosis: Likely laceration and other (Retained foreign object, intracranial hemorrhage, skull fracture, other) Discharge Plan Discharge Clinical Impression: Laceration of scalp Qualifiers: Encounter type: initial encounter Qualified Code(s): S01.01XA - Laceration without foreign body of scalp, initial encounter Patient Disposition: Home Condition: Stable Instructions: Antibiotic Form, Laceration (ED), Staple Care (ED) Additional Instructions: You were seen in the emergency department. A CT scan of the head was not concerning for bleeding in the brain or skull fracture. I recommend following up with your primary care doctor, urgent care or the emergency room in 10-14 days for suture removal. If you develop persistent vomiting, weakness/numbness, change/loss of vision/hearing, or if you have other emergent concerns for life, limb, or eyesight, return to the emergency department. Patient Language: Hungarian Prescriptions: New ondansetron 4 mg tablet,disintegrating 4 mg PO Q8H PRN (Reason: nausea and vomiting) Qty: 12 0RF Follow-up/Referrals: Vivek,Sudhakar Ivey MD [Primary Care Provider] - 2 Weeks (For suture removal) Time of Disposition: 03:44
[2024-08-18] MEDS: TETANUS,DIPHTHERIA,AC PERTUSSIS ADULT (0.5 ML) BOOSTRIX IM (03:24)
[2024-08-18] MEDS: ACETAMINOPHEN 500 MG TABLET 1000 MG PO (03:25)
[2024-08-18 03:34] VITALS: BP 138/86; O2SAT 97
[2024-08-18] MEDS: KETOROLAC 30 MG/ML VIAL (*BKC) IM (03:52)
[2024-08-18 04:18] VITALS: BP 142/68; O2SAT 99
[2024-08-18 04:27] VITALS: BP 142/68; PULSE 60; RESP 16; TEMP 36.9; O2SAT 99
[2024-08-18 04:28] VITALS: BP 142/68; PULSE 60; RESP 16; TEMP 36.9; O2SAT 99
== END 2024-08-18 04:30 | disposition home or self-care (01) ==
PROVIDERS: Emergency Provider Preventive Medicine Aerospace Medicine; PCP Family Medicine
DX: S01.01XA Laceration without foreign body of scalp, initial encounter (principal); Z23 Encounter for immunization; W01.198A Fall on same level from slipping, tripping and stumbling with subsequent striking against other object, initial encounter
CPT/HCPCS: 12002; 70450; 90471; 90715; 96372; 99284; A9270; J1885

== ENCOUNTER 2025-01-08 12:50 | Outpatient (CLI) | payer BC, SELFPAY ==
--- NOTE | ~2025-01-08 | MM_ITS ---
EXAMINATION: MM screening rico BI w michelle HISTORY: Screening TECHNIQUE: Craniocaudal and mediolateral oblique 3-D tomosynthesis images were obtained and synthetic 2-D images were generated. CAD analysis was submitted and interpreted. COMPARISON: 12/28/2022 BREAST PARENCHYMAL COMPOSITION: The breasts are extremely dense, which lowers the sensitivity of mammography. FINDINGS: There is no evidence of suspicious mass, calcification, or architectural distortion to suggest malignancy. There has been no suspicious interval change. IMPRESSION: 1. No mammographic evidence of malignancy. Recommend routine screening mammography in one year. BI-RADS Category 2: Benign finding(s) Reviewed, dictated and finalized at location Q. IMPRESSION: 1. No mammographic evidence of malignancy. Recommend routine screening mammogra phy in one year. BI-RADS Category 2: Benign finding(s)
--- OUTSIDE RECORDS SUMMARY | 2025-01-08 12:53 | XMS_ITS | Clinical Summary ---
Author Organization [facility] Address [facility] [place] [address] Care Team Providers Care Press Operator Meat Name Role Phone Sudhakar Doyle DO Primary Care Provider [phone] Allergies Active Allergy Reactions Criticality Noted Date [...] Comments Blood Pressure 105/71 2020 1:54 PM AUTOMOBILE LOCATOR Pulse 67 2020 1:54 PM AUTOMOBILE LOCATOR Temperature 36.6 C (97.8 F) 2020 1:35 PM AUTOMOBILE LOCATOR Respiratory Rate 18 2020 1:54 PM AUTOMOBILE LOCATOR Oxygen Saturation 98% 2020 1:54 PM AUTOMOBILE LOCATOR Inhaled Oxygen Concentration - - Weight 85.7 kg (189 lb) 2020 1:35 PM AUTOMOBILE LOCATOR Height 165.1 cm (5' 5) 2020 1:35 PM AUTOMOBILE LOCATOR Body Mass Index 31.45 2020 1:35 PM AUTOMOBILE LOCATOR Plan of Treatment Health Maintenance Due Date [...] COVID-19 Vaccine ( - 2023-2 5 season) 2024 DTaP, Tdap and Td Vaccines ( 2 [...] to complete this topic Insurance Care Teams Press Operator Meat Relationship Specialty Start Date End Date Sudhakar Doyle DO [address] [place] [address] [phone] PCP - General FAMILY PRACTICE 03/03/20
--- OUTSIDE RECORDS SUMMARY | 2025-01-08 12:53 | XMS_ITS | Clinical Summary ---
Author Organization [facility] Address [address] [place] [address] Care Team Providers Care Internal Controls Specialist Name Role Phone Sudhakar Doyle DO Primary Care Provider + Allergies Active Allergy Reactions Criticality Noted Date Comments Nickel Itching,Rash Medium 11/18/2018 Penicillins Rash Medium 02/08/2018 Medications aspirin-calcium carbonate 81 mg-300 mg calcium(777 mg) tablet Take 81 mg by mouth Active diphenhydramine HCl (BENADRYL ALLERGY ORAL) Take by mouth Active turmeric root extract 500 mg capsule Take by mouth Active fluticasone propionate (FLONASE) 50 mcg/actuation nasal spray SHAKE LIQUID AND USE 2 SPRAYS IN EACH NOSTRIL DAILY 48 g 1 07/17/19 25 Active meloxicam (MOBIC) 15 mg tabletIndications :Primary osteoarthritis of left knee TAKE 1 TABLET(15 MG) BY MOUTH DAILY 30 tablet 1 12/11/19 25 Active levocetirizine (XYZAL) 5 mg tablet TAKE 1 TABLET(5 MG) BY MOUTH DAILY 30 tablet 2 01/07/20 25 Active pravastatin (PRAVACHOL) 40 mg tabletIndications :Mixed hyperlipidemia Take 1 tablet (40 mg total) by mouth daily 90 tablet 3 01/07/20 25 2025 Active triamterene-hydro CHLOROthiazide 37.5-25 mg per tablet/capsuleInd ications:HTN, goal below 140/90 Take 1 tablet/capsu le by mouth daily 90 tablet/caps ule 3 01/07/20 25 2025 Active atenoloL (TENORMIN) 50 mg tablet Take 1 tablet (50 mg total) by mouth 2 (two) times a day 180 tablet 3 01/07/20 25 2025 Active pravastatin (PRAVACHOL) 40 mg tablet Take 1 tablet (40 mg total) by mouth daily 30 tablet 6 07/05/19 25 2024 Discontinued(R eorder) triamterene-hydro CHLOROthiazide 37.5-25 mg per tablet/capsule Take 1 tablet/capsu le by mouth daily 30 tablet/caps ule 6 07/05/19 25 2024 Discontinued(R eorder) albuterol HFA (PROVENTIL HFA,VENTOLIN HFA,PROAIR HFA) 90 mcg/actuation inhaler Inhale 2 puffs every 4 (four) hours as needed for wheezing or shortness of breath 1 each 08/21/19 25 2024 Discontinued(P atient Reported) levocetirizine (XYZAL) 5 mg tablet TAKE 1 TABLET(5 MG) BY MOUTH DAILY 30 tablet 2 10/05/19 25 2024 Discontinued meloxicam (MOBIC) 15 mg tabletIndications :Primary osteoarthritis of left knee TAKE 1 TABLET(15 MG) BY MOUTH DAILY 30 tablet 1 10/07/19 25 2024 Discontinued atenoloL (TENORMIN) 50 mg tablet TAKE 1 TABLET BY MOUTH TWICE DAILY 200 tablet 1 10/28/19 25 2024 Discontinued(R eorder) Hospital, Clinic, or Other Facility Administered Medication Ordered Dose Route Frequency Start Date End Date Status hyaluronate sodium, stabilized (DUROLANE) 60 mg/3 mL 60 mgIndications:Primar y osteoarthritis of left knee,Left knee pain, unspecified chronicity 60 mg intra-artic One-Time Injection 12/19/2024 Ended Active Problems Problem Noted Date Diagnosed Date Left knee pain 07/11/2022 Overview (07/11/2022): acute on chronic,unstable,fall 3 months ago;worsening formerly followed by Ortho Nasal obstruction 07/07/2022 Assessment & Plan (08/15/2022 [...] 03/23/2017 Hyperlipidemia 03/23/2017 Obesity (BMI 30-39.9) 03/23/2017 Encounters Date Type Department Care Team Description 01/06/2025 3:30 PM CDT Office Visit [facility] [address] [place] [id number] Sudhakar Doyle DO HTN, goal below 140/90 (Primary Dx); Need for vaccination; Chronic pain of left knee; IFG (impaired fasting glucose); Mixed hyperlipidemia; Class 1 obesity without serious comorbidity with body mass index (BMI) of 30.0 to 30.9 in adult, unspecified obesity type 12/19/2024 11:00 AM CDT Procedure visit [facility] [address] [place] [address] [address] [place] [address] Piero Escalante PA Primary osteoarthritis of left knee (Primary Dx); Left knee pain, unspecified chronicity 11/24/2024 Telephone [facility] [address] [place] [address] [address] [place] [address] Piero Escalante PA Injections from Last 3 Months Immunizations Immunization Administration Dates Next Due Influenza, Quadrivalent, Spl it, Preservative Free, Intradermal 12/31/2017,02/11/2016 Influenza, Quadrivalent, Spl it, Preservative Free, Intramuscular 01/30/2020,02/17/2019 Influenza, Trivalent, Preser vative Free, Intramuscular 01/06/2025,01/04/2024 Influenza, Unspecified 02/21/2023,2021,01/21/2021,12/23 Tdap 08/18/2024,04/05/2020 Surgical History Surgery Date Site/Laterality Comments FOOT [...] Angel Muñiz (Age 81) Maternal Grandmother Moon Brugger Mother Rianna Muñiz (Age 78) Sister Social [...] points, staff should administer the PHQ-9) 0 09/03/2024 Comments No Sex and Gender Information Value Date Recorded Sex Assigned at Not on file Legal Sex Female 12:17 PM RV REPAIRER Gender Identity Female 11/15/2018 4:40 PM CDT Sexual Orientation Straight 04/07/2021 9: 34 AM RV REPAIRER Obstetrics History Last Filed Vital Signs Vital Sign Reading Time Taken Comments Blood Pressure 116/64 01/06/2025 2:58 PM CDT Pulse 73 01/06/2025 2:58 PM CDT Temperature 36.3 C (97.4 F) 01/06/2025 2:58 PM CDT Respiratory Rate 18 01/06/2025 2:58 PM CDT Oxygen Saturation 96% 01/06/2025 2:58 PM CDT Inhaled Oxygen Concentration - - Weight 90.5 kg (199 lb 9.6 oz) 01/06/2025 2:58 P M CDT Height 165.1 cm (5' 5) 01/06/2025 2:58 PM CDT Body Mass Index 33.22 01/06/2025 2:58 PM CDT Plan of Treatment Health Maintenance Due Date Last Done Comments Cervical Cancer Screening 1962 Hepatitis B Screening 1980 Zoster Vaccine (1 of 2) 2012 Breast Cancer Screening-Mammogram 10/17/2022 10/17/2021 Regular Well Visit/Exam 18-64 07/04/2025 07/04/2024, 07/03/2023, 06/13/2022, Additional history exists Depression Screening 09/03/2025 09/03/2024, 07/04/2024, 01/04/2024, Additional history exists Colon Cancer Screening-Colonoscopy 05/07/2027 05/07/2017 DTaP/Tdap/Td Vaccine (3 - Td or Tdap) 08/18/2034 08/18/2024, 04/05/2020 Hepatitis C Screening Completed 10/04/2020 Influenza Vaccine Completed 01/06/2025, , 02/21/2023, Additional history exists Pneumococcal vaccine <65 Aged Out No longer eligible based on patient's age to complete this topic Procedures Procedure Name Priority Date/Time Associated Diagnosis Comments [place] ARTHROCENTESIS ASPIR&/INJ MAJOR JT/BURSA W/O US Routine 12/19/2024 11:00 AM CDT Primary osteoarthritis of left knee Left knee pain, unspecified chronicity SCREENING MAMMOGRAM BILATERAL W TIEN Schedule Routine, Read Routine (OP Routine) 10/17/2021 HEPATITIS C ANTIBODY Routine 10/04/2020 2:54 PM CDT Need for hepatitis C screening test from Last 3 Months or Most Recently Relevant to Health Maintenance Results * TX ARTHROCENTESIS ASPIR&/INJ MAJOR JT/BURSA W/O US (12/19/2024 11:00 AM CDT) Narrative Jaya Morales MD - 12/19/2024 11:00 AM CDT Jaya Morales MD 12/19/2024 1:27 PM Large Joint (Hip, Knee, Shoulder) Injection: L knee Performed by: Piero Escalante PA Authorized by: Piero Escalante PA Large Joint Injection/Aspiration: Consent Given by: Patient Site marked: the procedure site was marked Timeout: prior to procedure the correct patient, procedure, and site was verified Verbal consent obtained: Yes Supporting Documentation: Indications: Pain Procedure Details: Location: Knee Site: L knee Prep: patient was prepped and draped in usual sterile fashion Needle Size: 21 G Approach: Anterolateral Ultrasound guided: No Fluroscopic guidance: No Medications: 60 mg hyaluronate sodium, stabilized 60 mg/3 mL Patient tolerance: Patient tolerated the procedure well with no immediate complications us Piero CONNOLLY IN CLINIC/BEDSIDE ORD ERABLES Final Result * Screening Mammogram Bilateral W Tien (10/17/2021) Anatomical Region Laterality Modality Breast Bilateral Mammography us Historical Provider MD CHAHAL MAMMO PROCEDURES Nivia [...] MICROBIOLOGY - GENER AL ORDERABLES Final Result [facility] [address] [facility] Department of Laboratories [place], [place] [id number] from Last 3 Months or Most Recently Relevant to Health Maintenance Insurance [facility] [employer] SIGNATURE [place] [facility] [employer] SIGNATURE Care Teams Internal Controls Specialist Relationship Specialty Start Date End Date Sudhakar Doyle DO [address] [place] [phone] PCP - General Family Medicine 07/19/18
--- OUTSIDE RECORDS SUMMARY | 2025-01-08 12:53 | XMS_ITS | Encounter Summary ---
Author Organization [facility] Facility Care Team Providers Care Scale Attendant Name Role Phone Sudhakar Doyle DO Primary Care Provider + Encounter Details Date Type Department Care Team (Latest Contact Info) Description 05/03/2017 Orders Only [facility] CLINCONV ProviderAftab [place] [address] Social History Tobacco Use Types Packs/Day Years Used Date Smoking Tobacco: Never Assessed Comments Unknown Sex and Gender Information Value Date Recorded Sex Assigned at Not on file Legal Sex Female 12:17 PM HOME APPLIANCE WASHING MACHINE MECHANIC Gender Identity Female 11/15/2018 4:40 PM CDT Sexual Orientation Straight 04/07/2021 9: 34 AM HOME APPLIANCE WASHING MACHINE MECHANIC documented as of this encounter Plan of Treatment Not on file documented as of this encounter Procedures Procedure Name Priority Date/Time Associated Diagnosis Comments COLONOSCOPY - SCAN 05/03/2017 12 :00 AM HOME APPLIANCE WASHING MACHINE MECHANIC documented in this encounter Results * COLONOSCOPY - SCAN (05/03/2017 12:00 AM HOME APPLIANCE WASHING MACHINE MECHANIC) Narrative 05/03/2017 12:00 AM HOME APPLIANCE WASHING MACHINE MECHANIC Ordered by an unspecified provider. Historical Provider Final Res ult documented in this encounter Visit Diagnoses Not on filedocumented in this encounter Care Teams Scale Attendant Relationship Specialty Start Date End Date Sudhakar Doyle DO [address] [place] [phone] PCP - General Family Medicine 07/19/18 documented as of this encounter
--- OUTSIDE RECORDS SUMMARY | 2025-01-08 12:53 | XMS_ITS | Clinical Summary ---
Author Organization [facility] Address [address] [place] [address] Care Team Providers Care Label Pinker Name Role Phone Unavailable Primary Care Provider Unavailabl e Source Comments [facility],non-owned Affiliates and Associated Physician Practices is amultiple site organization consisting of ambulatory clinics and hospital sitesin [place], [place], [place] and [place]. This disclosure is being madepursuant to the Care Everywhere program and may not contain all information available regarding this patient. Last updated 18.[facility] Allergies Active Allergy Reactions Criticality Noted Date [...] 12:00 PM CDT Height 165.1 cm (5' 5) 02/08/2018 12:00 PM CDT Body Mass Index [...] 2012 ZOSTER VACCINE (1 of 2) 2012 DEPRESSION SCREENING 04/23/2024 COVID-19 VACCINE (1 - 2023-2 5 season) 2024 INFLUENZA VACCINE (#1) 2024 9, 02/11/2016 Respiratory Syncytial Virus (RSV) Vaccine Pt: [...] patient's age to complete this topic Insurance [facility]
--- OUTSIDE RECORDS SUMMARY | 2025-01-08 12:53 | XMS_ITS | Encounter Summary ---
Author Organization [facility] Facility Care Team Providers Care Interventional Tech Name Role Phone Sudhakar Doyle DO Primary Care Provider + Encounter Details Date Type Department Care Team (Latest Contact Info) Description 05/07/2017 Orders Only [facility] CLINCONV ProviderAftab MD [address] [place] [id number] Social History Tobacco Use Types Packs/Day Years Used Date Smoking Tobacco: Never Assessed Comments Unknown Sex and Gender Information Value Date Recorded Sex Assigned at Not on file Legal Sex Female 12:17 PM CLINICAL RESEARCH NURSE COORDINATOR Gender Identity Female 11/15/2018 4:40 PM CDT Sexual Orientation Straight 04/07/2021 9: 34 AM CLINICAL RESEARCH NURSE COORDINATOR documented as of this encounter Plan of Treatment Not on file documented as of this encounter Procedures Procedure Name Priority Date/Time Associated Diagnosis Comments COLONOSCOPY - SCAN 05/07/2017 12 :00 AM CLINICAL RESEARCH NURSE COORDINATOR documented in this encounter Results * COLONOSCOPY - SCAN (05/07/2017 12:00 AM CLINICAL RESEARCH NURSE COORDINATOR) Narrative 05/07/2017 12:00 AM CLINICAL RESEARCH NURSE COORDINATOR Ordered by an unspecified provider. Historical Provider Final Res ult documented in this encounter Visit Diagnoses Not on filedocumented in this encounter Care Teams Interventional Tech Relationship Specialty Start Date End Date Sudhakar Doyle DO [address] [place] [phone] PCP - General Family Medicine 07/19/18 documented as of this encounter
--- OUTSIDE RECORDS SUMMARY | 2025-01-08 12:53 | XMS_ITS | Encounter Summary ---
Author Organization [facility] Facility Care Team Providers Care Briquetting Machine Operator Name Role Phone Sudhakar Doyle DO Primary Care Provider + Encounter Details Date Type Department Care Team (Latest Contact Info) Description 03/23/2017 Orders Only [facility] CLINCONV ProviderAftab MD [facility] [place] [address] Social History Tobacco Use Types Packs/Day Years Used Date Smoking Tobacco: Never Assessed Comments Unknown Sex and Gender Information Value Date Recorded Sex Assigned at Not on file Legal Sex Female 12:17 PM WHARF LABOURER Gender Identity Female 11/15/2018 4:40 PM CDT Sexual Orientation Straight 04/07/2021 9: 34 AM WHARF LABOURER documented as of this encounter Plan of Treatment Not on file documented as of this encounter Procedures Procedure Name Priority Date/Time Associated Diagnosis Comments SCAN - LABS 03/23/2017 12:00 AM WHARF LABOURER documented in this encounter Results * SCAN - LABS (03/23/2017 12:00 AM WHARF LABOURER) Narrative 03/23/2017 12:00 AM WHARF LABOURER Ordered by an unspecified provider. Historical Provider Final Res ult documented in this encounter Visit Diagnoses Not on filedocumented in this encounter Care Teams Briquetting Machine Operator Relationship Specialty Start Date End Date Sudhakar Doyle DO [address] [place] [phone] PCP - General Family Medicine 07/19/18 documented as of this encounter
--- OUTSIDE RECORDS SUMMARY | 2025-01-08 12:53 | XMS_ITS | Encounter Summary ---
Author Organization [facility] Address [address] [place] [address] Care Team Providers Care Coat Repair Inspector Name Role Phone Sudhakar Doyle DO Primary Care Provider [phone] Reason for Referral * Surgical (Routine) - Closed Specialty Diagnoses / Procedures Referred By Kennedy light Referred To Contact Procedures Case request operating room: INJECTION EPIDURAL STEROID CERVICAL C5-6 Sosa Mejias NP [address] [facility] [address] [place] [phone] Phone: [phone]: [phone] fax: Referral ID Status Reason Start Date Expiration Date Visits Re quested Visits Authorized [id number] Closed 03/05/2020 04/04/2021 1 1 GER BUSINESS PLANNING Encounter Details Date Type Department Care Team (Late st Contact Info) Description 03/05/2020 Prep for Procedure [facility] [place] [address] [id number] Sosa Mejias NP [address] [facility] [address] [place] [phone] (Work) Social History Tobacco Use Types Packs/Day Years [...] COVID-19? No / Unsure 03/05/2020 11:32 AM MANAGER BUSINESS PLANNING documented as of this encounter Plan of Treatment Scheduled Orders Name Type Priority Associated Diagnoses Orde r Schedule Case request operating room: INJECTION EPIDURAL STEROID CERVICAL C5-6 Case Request Routine Once for 1 Occur debbie starting 03/05/2020 until 03/05/2020 documented as of this encounter Visit Diagnoses Not on filedocumented in this encounter Care Teams Coat Repair Inspector Relationship Specialty Start Date End Date Sudhakar Doyle DO [address] [place] [address] PCP - General FAMILY PRACTICE 03/03/20 documented as of this encounter
== END 2025-01-08 12:51 | disposition home or self-care (01) ==
LOC: ANHFOHIMG 12:51
PROVIDERS: PCP Family Medicine; Visit Provider Nurse Practitioner
DX: Z12.31 Encounter for screening mammogram for malignant neoplasm of breast (principal)
CPT/HCPCS: 77063; 77067